=== PATIENT | female | born 1930 | race Two or more races ===

== ENCOUNTER 2018-10-21 12:56 | Outpatient (CLI) | payer OTHER ==
[~2018-10-21 12:56] MED LIST: CARVEDILOL12.5 MG; COREG CR80 MG PO; GLUCOSAMIN1 TAB.CHEW PO; HYZAAR 100-251 UDTAB PO; LEVAQUIN500 MG PO; VITAMIN D400 UNI2 PO; ZYRTEC10 MG PO
== END 2018-10-21 12:58 | disposition home or self-care (01) ==
LOC: RAD 12:56
DX: M25.551 Pain in right hip (principal)